=== PATIENT | female | born 1950 | race Caucasian/White ===

== ENCOUNTER 2019-10-19 17:04 | Inpatient (IN) | payer OTHER, MEDICARE ==
[2019-10-19] MEDS ORDERED: TYLENOL 325 MG PO PRN (17:16)
[2019-10-19] MEDS ORDERED: Colace 100 MG PO PRN (17:16)
[2019-10-19] MEDS: Tamiflu 75MG Capsule PO SCH (18:08)
[2019-10-19] MEDS: Sodium Chloride 0.9% 1000 ML 1,000 ML IV SCH (18:08)
[2019-10-19 18:53] LABS: Absolute Neutrophil Ct (ANC) 2.59 (1.4-6.9); BASOPHIL % 0.6 % (0.0-0.4); Basophil (Absolute #) 0.03 (0-0.4); Eosinophil % 4.3 % (0.00-5.0); Eosinophil (Absolute #) 0.23 (0-0.5); Hematocrit 38.3 % (35-47); Hemoglobin 10.5 gm/dl (12.0-16.0); Lymphocyte (Absolute #) 1.63 (1.0-4.6); Lymphocytes % 30.4 % (24.0-44.0); Mean Corpuscular Hemoglobin 24.1 pg (26-32); Mean Corpuscular Hgb Concent. 27.4 g/dl (32-36); Mean Platelet Volume 9.8 fl (7.5-11.0); Monocyte (Absolute #) 0.89 (0.0-1.3); Monocytes % 16.6 % (0.0-12.0); Neutrophil % 48.1 % (36.0-66.0); Platelet Count 200 K/mm3 (150-450); Red Blood Count 4.35 M/mm3 (4.1-5.4); Red Cell Distribution Width 19.8 % (11.5-14.0); White Blood Count 5.4 K/mm3 (4.0-10.5)
[2019-10-19 19:11] LABS: ALBUMIN 3.6 g/dL (3.5-5.0); ALKALINE PHOSPHATASE 100 U/L (38-126); ANION GAP 6.2 MEQ/L (5-15); BLOOD UREA NITROGEN 10 mg/dL (7-17); CHLORIDE 104 mmol/L (98-107); Calcium 8.7 mg/dL (8.4-10.2); Carbon Dioxide 36 mmol/L (22-30); Creatinine 1 0.58 mg/dL (0.52-1.04); Glucose 74 mg/dL (74-106); Potassium 3.7 mmol/L (3.5-5.1); SGOT/AST 36 U/L (14-36); SGPT/ALT 15 U/L (0-35); SODIUM 143 mmol/L (137-145)
[2019-10-19] MEDS ORDERED: ROCEPHIN 1 Gm-D5w 50 ml Bag** 1 G/50 ML IVPB IV SCH (20:00)
[2019-10-19] MEDS ORDERED: Zithromax 500 MG/ 250 ML NaCl Premix 500 MG/250 ML IVPB IV SCH (21:00)
[2019-10-19] MEDS ORDERED: Protonix 40MG Tablet PO SCH (22:00)
[2019-10-19] MEDS: Coreg 6.25 MG PO SCH (22:00)
[2019-10-19] MEDS: ZOCOR 20MG PO SCH (22:00)
[2019-10-20 00:17] LABS: A-aADO2 27; ABG POTASSIUM 3.9 (3.5-5.1); ARTERIAL BLOOD GAS BASE EXCESS 5.8 (-2.0-2.0); ARTERIAL BLOOD GAS pH 7.33 (7.35-7.45); CARBOXYHEMOGLOBIN 2.5 % THgb (0.0-6.9); HCO3- 33.2 (22-28); HGB O2 SAT 82.5 g/dF (94-100); Methhemoglobin 0.7 % (1.4-1.5); paO2 pAO1 0.62
[2019-10-20 00:26] LABS: ARTERIAL BLOOD GAS PCO2 63 mmHg (35-45)
[2019-10-20 00:28] LABS: Slide Review 1 YES
[2019-10-20 00:32] LABS: ABG HEMOGLOBIN 10.5; ARTERIAL BLOOD GAS FIO2 21 %; ARTERIAL BLOOD GAS PO2 44 mmHg (75-100)
[2019-10-20 00:33] LABS: ABG SITE LEFT RADIAL; ALLEN TEST OK? YES
[2019-10-20] MEDS ORDERED: DUONEB 0.5-3 MG/3 ml Neb IH ONE ×2 (03:18→09:27)
[2019-10-20] MEDS ORDERED: DUONEB 0.5-3 MG/3 ml Neb IH PRN (03:34)
[2019-10-20] MEDS ORDERED: solu-MEDROL 125 MG IV ONE (03:35)
--- NOTE | 2019-10-20 08:41 | XRAY ---
Indication: Cough and short of breath. Positive influenza. Comparison: None PA/lateral chest hyperinflated with chronic lung markings and patchy right base infiltrate versus atelectasis. Borderline cardiomegaly with small hiatal hernia. Bony thorax intact with mild osteopenia and degenerative changes.
[2019-10-20] MEDS ORDERED: PROVENTIL 2.5 MG/3 ML NEB IH PRN (08:45)
[2019-10-20] MEDS ORDERED: solu-MEDROL 40 MG IV SCH (08:45)
[2019-10-20] MEDS ORDERED: LASIX 20 MG PO PRN (09:15)
[2019-10-20] MEDS: DUONEB 0.5-3 MG/3 ml Neb IH SCH ×3 (09:33→19:22)
[2019-10-20] MEDS: PLAVIX 75 MG Tablet PO SCH (09:58)
[2019-10-20] MEDS: Tamiflu 75MG Capsule PO SCH ×2 (09:58→21:21)
[2019-10-20] MEDS: ECOTRIN 81 MG PO SCH (09:58)
[2019-10-20] MEDS: Coreg 6.25 MG PO SCH ×2 (09:58→21:20)
[2019-10-20] MEDS: SYNTHROID 88 MCG PO SCH (09:58)
[2019-10-20] MEDS: Protonix 40MG Tablet PO SCH (09:58)
[2019-10-20] MEDS: Glucotrol Xl 2.5 MG PO SCH (09:58)
[2019-10-20] MEDS ORDERED: GLIPIZIDE 5 MG PO SCH (10:00)
[2019-10-20] MEDS: Glucophage 500 MG PO SCH ×2 (10:03→17:33)
[2019-10-20] MEDS: solu-MEDROL 125 MG IV SCH ×3 (10:03→23:45)
--- NOTE | 2019-10-20 11:41 | HP ---
HISTORY OF PRESENT ILLNESS: This is a 69 year-old patient of mine who presented to [facility] yesterday. She reports to me she was having increased trouble breathing and fever starting on Friday and felt bad enough that she was not able to go to work on Friday. She reports that over the past three weeks she had some increased shortness of breath. She denies any history of chronic obstructive pulmonary disease or asthma. She has been exposed to influenza A where she works at [employer] and tested positive for influenza A in the [facility]. I made her a direct admission for further evaluation and treatment as [facility] found that her oxygen saturation was 90% on room air and she also has multiple other chronic health problems such as diabetes, hypertension, hyperlipidemia, hypothyroidism, as well as LYONS (nonalcoholic steatohepatitis) and history of variceal bleeding. The patient reports that overnight her breathing felt tight but feels better this morning. She does not wear oxygen at home. REVIEW OF SYSTEMS: No chest pain. No abdominal pain. No constipation. No diarrhea. No fever now. Shortness of breath. Mild swelling of her lower extremities. MEDICATIONS: I reviewed her home medication reconciliation form. ALLERGIES: CODEINE. PAST MEDICAL HISTORY: Diabetes mellitus type 2. Hyperlipidemia. Hypertension. Hypothyroidism. Nonalcoholic steatohepatitis with cirrhosis. History of variceal bleeding requiring banding 09/26/2019, 05/28/2019, 03/29/2019. CVA May 2019. History of atrial fibrillation with Watchman device placed May 2019. Her bank reconciliator is Dr. Andres Ewing. PAST SURGICAL HISTORY: Appendectomy. Variceal banding as described above. Thyroid surgery for goiter. Tonsillectomy. Upper endoscopy as described above. Watchman placed in May 2019. SOCIAL HISTORY: Her daughter lives with her, former smoker. FAMILY HISTORY: Her father had heart disease. Her mother had ovarian cancer and CVA. PHYSICAL EXAMINATION: VITAL SIGNS: Temperature current 97.6F, temperature max 98.1F, heart rate 78, respiratory rate 18, blood pressure 133/70, weight 154.2 kg. Oxygen saturation 91% on 3 liters nasal cannula. GENERAL: The patient is sitting up in her chair in no acute distress, alert and cooperative. CVS: She has a regular rate and rhythm. No murmurs, gallops or rubs are appreciated. CHEST: She has decreased breath sounds at the right base with prolonged breath sounds that are distant throughout, a few short expiratory wheezes throughout. ABDOMEN: Soft, nontender, nondistended with normal bowel sounds. EXTREMITIES: No clubbing or cyanosis. Trace edema to her knees bilaterally. SKIN: Warm, dry and intact. LABORATORY DATA AND TESTS: Hemoglobin 10.5. She had a blood gas done at 0024 on 10/20/2019 with a pH of 7.3, pCO2 63, pO2 44 this was done on room air. CMP was within normal limits except for carbon dioxide of 36, hemoglobin A1C 6.2. She had a chest x-ray done that was read as hyperinflated with chronic lung markings and patchy right base infiltrate versus atelectasis, borderline cardiomegaly with small hiatal hernia, mild osteopenia of the bony thorax and degenerative changes. Please see the radiologist report for the full dictation. ASSESSMENT AND PLAN: 1) INFLUENZA A: She has been started on Tamiflu. She reported to me that she had gotten her flu immunization one week prior to this admission. 2) RIGHT LOWER LOBE PNEUMONIA: I started her on ceftriaxone and azithromycin. 3) HYPERCAPNIC RESPIRATORY FAILURE: Will continue with supportive treatment and Dr. Vitor Ferraro, [facility], has been consulted. 4) HYPOXIA: Will continue with oxygen. Again, Dr. Vitor Ferraro has been consulted. 5) REACTIVE AIRWAY DISEASE: She may have some underlying chronic obstructive pulmonary disease. I started her on Solu-Medrol 80 mg IV every six hours as well as DuoNeb every six hours and Albuterol as needed. RT was consulted at the time of admission and is now following the patient. 6) DIABETES: Will continue with her home diabetes medication and low dose sliding scale if needed. Her hemoglobin A1C was less than 2. 7) HYPERTENSION: Will continue with her current home antihypertensive. 8) ANEMIA: Probably related to her chronic health problems currently stable. No signs of variceal bleeding.
[2019-10-20] MEDS: NovoLOG Insulin SQ PRN ×3 (12:48→22:01)
[2019-10-20] MEDS: Sodium Chloride 0.9% 1000 ML 1,000 ML IV SCH (14:10)
--- NOTE | 2019-10-20 14:35 | CONS ---
CONSULT DATE: 10/20/2019 HISTORY: Miss Ramirez is a 69 year-old pleasant woman who has been admitted with complaints of cough, shortness of breath, wheezing. The patient has tested positive for influenza and she has been treated on Tamiflu and antibiotics for bacterial infection. She does report improvement in shortness of breath. She is currently sitting in chair on nasal cannula. She does report improvement in cough which has had yellow productive expectoration. The patient has received influenza vaccine this year. She denies any other common medical problems at this time. PAST MEDICAL HISTORY: Positive for history of stroke last year. History of hypertension, diabetes mellitus and gastroesophageal reflux. She also has hyperlipidemia and hypothyroidism. PAST SURGICAL HISTORY: No recent surgery. PERSONAL AND SOCIAL HISTORY: She is a former smoker but quit several years ago. MEDICATIONS: Home and current medications are reviewed. ALLERGIES: CODEINE. PHYSICAL EXAMINATION: This is a middle aged woman who appears comfortable, able to talk without difficulty. Vital signs noted. HEENT: Normocephalic. Oral exam shows small oropharynx. NECK: Short. CVS: First and second heart sounds are normal, regular, rhythmic. RESPIRATORY: Shows diminished breath sounds, occasional rhonchi are heard. ABDOMEN: Obese. EXTREMITIES: Lower extremities show SCD's in place. LABORATORY DATA AND TESTS: White count 5.4, hemoglobin 10.5, hematocrit 38, PLT 200,000. The pH 7.33, pCO2 63, pO2 44. Sodium 143, potassium 3.7, chloride 104, bicarb 36, BUN 10, creatinine 0.5. A1C 6.2. Chest x-ray showed patchy right base infiltrate versus atelectasis. ASSESSMENT: This is a 69 year old woman admitted with: 1) Influenza A being treated with Tamiflu. 2) Right lower lobe infiltrate on antibiotics. Recommend follow up chest x-ray for resolution. 3) Shortness of breath: Body habitus versus likely obstructive airways disease? 4) Hypercapnia at baseline with possible obesity hypoventilation. 5) History of hypertension. 6) Diabetes mellitus. 7) Previous history of CVA. RECOMMENDATIONS: 1) I agree with the present treatment. Complete Tamiflu. 2) Continue antibiotics, obtain follow up chest x-ray. 3) Pulmonary function test at a later point. 4) The patient will benefit from polysomnography to rule out obstructive sleep apnea as well. 5) I will follow up in office upon discharge. Thank you, Dr. Jaime, for allowing me to participate in the care of Miss Ramirez.
[2019-10-20] MEDS: ROCEPHIN 1 Gm-D5w 50 ml Bag** 1 G/50 ML IVPB IV SCH (21:20)
[2019-10-20] MEDS: ZOCOR 20MG PO SCH (21:21)
[2019-10-20] MEDS: Zithromax 500 MG/ 250 ML NaCl Premix 500 MG/250 ML IVPB IV SCH (21:21)
[2019-10-21 05:17] LABS: BASOPHIL % 0.3 % (0.0-0.4); Basophil (Absolute #) 0.02 (0-0.4); Eosinophil (Absolute #) 0 (0-0.5); Hematocrit 38.1 % (35-47); Hemoglobin 10.3 gm/dl (12.0-16.0); Lymphocyte (Absolute #) 0.61 (1.0-4.6); Lymphocytes % 7.8 % (24.0-44.0); Mean Cell Volume 91.1 fl (78-100); Mean Corpuscular Hemoglobin 24.6 pg (26-32); Mean Platelet Volume 10.5 fl (7.5-11.0); Monocytes % 3.8 % (0.0-12.0); Neutrophil % 88.1 % (36.0-66.0); Platelet Count 190 K/mm3 (150-450); Red Blood Count 4.18 M/mm3 (4.1-5.4); Red Cell Distribution Width 19.1 % (11.5-14.0); White Blood Count 7.8 K/mm3 (4.0-10.5)
[2019-10-21 05:21] LABS: ANION GAP 9.3 MEQ/L (5-15); BLOOD UREA NITROGEN 11 mg/dL (7-17); CHLORIDE 105 mmol/L (98-107); Calcium 8.7 mg/dL (8.4-10.2); Carbon Dioxide 32 mmol/L (22-30); Creatinine 1 0.46 mg/dL (0.52-1.04); Glucose 229 mg/dL (74-106); SODIUM 142 mmol/L (137-145)
[2019-10-21 05:24] LABS: Potassium 4.7 mmol/L (3.5-5.1)
[2019-10-21] MEDS: solu-MEDROL 125 MG IV SCH ×4 (06:21→23:11)
[2019-10-21] MEDS: DUONEB 0.5-3 MG/3 ml Neb IH SCH ×4 (06:46→20:06)
[2019-10-21] MEDS: Glucophage 500 MG PO SCH ×2 (08:16→18:02)
[2019-10-21] MEDS: NovoLOG Insulin SQ PRN ×3 (08:17→21:38)
[2019-10-21] MEDS: Glucotrol Xl 2.5 MG PO SCH (08:17)
[2019-10-21 08:23] LABS: Slide Review 1 YES
--- NOTE | 2019-10-21 08:34 | PCM.NOTE ---
Date and Time: 10/21/19828 Subjective Assessment: Patient reports continued cough that is now nonproductive. She does not wear oxygen at home but continues to require oxygen here. Dr. Hitesh Ferraro saw her yesterday. - Review of Systems Constitutional: Fatigue Eyes: No Symptoms Ears, Nose, & Throat: No Symptoms Respiratory: Cough, Short Of Breath Cardiac: No Symptoms Abdominal/Gastrointestinal: No Constipation Genitourinary Symptoms: No Symptoms Musculoskeletal: No Symptoms Objective Exam General Appearance: no apparent distress, obese Neurologic Exam: alert, cooperative, normal mood/affect Skin Exam: normal color, warm, dry, No rash Respiratory Exam: other (distant breath sounds throughout, few scattered wheezes ), No crackles/rales Cardiovascular Exam: regular rate/rhythm, normal heart sounds, No murmur, No friction rub, No gallop Gastrointestinal/Abdomen Exam: soft, normal bowel sounds, No tenderness, No distention, No mass Extremity Exam: other (trace edema, no c/c) OBJECTIVE DATA Vital Signs: Vital Signs - 24 hr Temp Pulse Resp BP Pulse Ox 10/21/19 07:52 97.6 F 73 20 135/71 95 10/21/19 07:29 91 L 10/21/19 06:49 73 20 95 10/21/19 04:10 98.3 F 92 H 24 148/67 94 L 10/21/19 03:00 94 L 10/21/19 00:21 98.6 F 80 20 141/71 97 10/20/19 23:00 91 L 10/20/19 20:00 98.1 F 72 24 134/70 91 L 10/20/19 19:28 65 18 90 L 10/20/19 16:00 98.0 F 80 18 139/63 91 L 10/20/19 14:14 76 22 90 L 10/20/19 12:00 97.6 F 86 20 139/65 91 L 10/20/19 11:00 91 L 10/20/19 09:41 88 20 92 L Oxygen-Last 24 hours O2 Percentage 4 Liters = 36% O2 Percentage 4 Liters = 36% O2 Percentage 4 Liters = 36% O2 Percentage 3 Liters = 32% O2 Percentage 3 Liters = 32% O2 Percentage 3 Liters = 32% Oxygen Flowrate (L/min)-RT 3 Pain Assessment - Last Documented Pain Intensity 0 Pain Scale Used 0-10 Pain Scale Intake and Output: Intake & Output 10/19/19 10/20/19 10/21/19 10/22/19 06:59 06:59 06:59 06:59 Intake Total 951 2068 Balance 956 2068 Weight 154.2 kg Lab Results: Accuchecks Accucheck Value: 221 Accucheck Value: 278 Accucheck Value: 262 Lab Results-Last 24 Hours 10/21/19 10/21/19 Range/Units 05:10 05:10 WBC 7.8 (4.0-10.5) K/mm3 RBC 4.18 (4.1-5.4) M/mm3 Hgb 10.3 L (12.0-16.0) gm/dl Hct 38.1 (35-47) % MCV 91.1 (78-100) fl MCH 24.6 L (26-32) pg MCHC 27.0 L (32-36) g/dl RDW 19.1 H (11.5-14.0) % Plt Count 190 (150-450) K/mm3 MPV 10.5 (7.5-11.0) fl Gran % 88.1 H (36.0-66.0) % Eos # (Auto) 0 (0-0.5) Absolute Lymphs (auto) 0.61 L (1.0-4.6) Absolute Monos (auto) 0.30 (0.0-1.3) Lymphocytes % 7.8 L (24.0-44.0) % Monocytes % 3.8 (0.0-12.0) % Eosinophils % 0.0 (0.00-5.0) % Basophils % 0.3 (0.0-0.4) % Absolute Granulocytes 6.90 (1.4-6.9) Basophils # 0.02 (0-0.4) Sodium 142 (137-145) mmol/L Potassium 4.7 D (3.5-5.1) mmol/L Chloride 105 (98-107) mmol/L Carbon Dioxide 32 H (22-30) mmol/L Anion Gap 9.3 (5-15) MEQ/L BUN 11 (7-17) mg/dL Creatinine 0.46 L (0.52-1.04) mg/dL Estimated GFR > 60.0 ML/MIN Glucose 229 H (74-106) mg/dL Calcium 8.7 (8.4-10.2) mg/dL Slides for Path Review YES Radiology Exams: Radiology Procedures Category Date Time Status CHEST 2 VIEWS (PA AND LAT) Routine Exams 10/19/19 17:40 Completed Assessment/Plan (1) Influenza A Current Visit: Yes Status: Acute Onset Date: ~10/19/19 Assessment & Plan: Requiring oxygen. Continue to try to wean this. Continue Tamiflu. Code(s): J10.1 - FLU DUE TO OTH IDENT INFLUENZA VIRUS W OTH RESP MANIFEST (2) Pneumonia Current Visit: Yes Status: Acute Onset Date: ~10/19/19 Qualifiers: Laterality: right Lung location: lower lobe of lung Assessment & Plan: Continue ceftriaxone and azithromycin. Dr. Hitesh Ferraro saw her. Continue breathing treatments. Code(s): J18.9 - PNEUMONIA, UNSPECIFIED ORGANISM (3) Hypoxia Current Visit: Yes Status: Acute Onset Date: ~10/19/19 Code(s): R09.02 - HYPOXEMIA (4) Reactive airway disease Current Visit: Yes Status: Acute Assessment & Plan: Continue solumedrol and breathing treatments. Code(s): J45.909 - UNSPECIFIED ASTHMA, UNCOMPLICATED (5) Diabetes type 2, controlled Current Visit: Yes Status: Acute Qualifiers: Diabetes mellitus complication status: with diabetic arthropathy Assessment & Plan: Continue home medications and sliding scale of insulin. Code(s): E11.9 - TYPE 2 DIABETES MELLITUS WITHOUT COMPLICATIONS (6) Hypertension Current Visit: Yes Status: Acute Assessment & Plan: Well controlled. Code(s): I10 - ESSENTIAL (PRIMARY) HYPERTENSION (7) Anemia Current Visit: Yes Status: Acute Assessment & Plan: Will check iron and Vit B 12 levels. Patient has cirrhosis so may be anemia of chronic disease. Code(s): D64.9 - ANEMIA, UNSPECIFIED (8) Cirrhosis Current Visit: Yes Status: Acute (9) Steatohepatitis, nonalcoholic Current Visit: Yes Status: Acute Assessment & Plan: Follows with GI as outpatient. Code(s): K75.81 - NONALCOHOLIC STEATOHEPATITIS (LYONS)
[2019-10-21] MEDS: SYNTHROID 88 MCG PO SCH (09:43)
[2019-10-21] MEDS: PLAVIX 75 MG Tablet PO SCH (09:43)
[2019-10-21] MEDS: Protonix 40MG Tablet PO SCH (09:43)
[2019-10-21] MEDS: Coreg 6.25 MG PO SCH ×2 (09:43→21:38)
[2019-10-21] MEDS: ECOTRIN 81 MG PO SCH (09:43)
[2019-10-21] MEDS: Tamiflu 75MG Capsule PO SCH ×2 (09:43→21:37)
[2019-10-21 10:40] LABS: Iron 39 ug/dL (37-170); Iron Saturation 9 % (20-39); TIBC 430 ug/dL (265-462)
[2019-10-21] MEDS: ZOCOR 20MG PO SCH (21:37)
[2019-10-21] MEDS: ROCEPHIN 1 Gm-D5w 50 ml Bag** 1 G/50 ML IVPB IV SCH (21:37)
[2019-10-21] MEDS: Zithromax 500 MG/ 250 ML NaCl Premix 500 MG/250 ML IVPB IV SCH (21:38)
[2019-10-22] MEDS: DUONEB 0.5-3 MG/3 ml Neb IH SCH ×4 (00:12→19:38)
[2019-10-22] MEDS: Sodium Chloride 0.9% 1000 ML 1,000 ML IV SCH (03:56)
[2019-10-22] MEDS: solu-MEDROL 125 MG IV SCH ×3 (06:34→22:13)
[2019-10-22] MEDS: Glucotrol Xl 2.5 MG PO SCH (08:02)
[2019-10-22] MEDS: Glucophage 500 MG PO SCH ×2 (08:02→16:50)
--- NOTE | 2019-10-22 08:29 | PCM.NOTE ---
Date and Time: 10/22/19824 Subjective Assessment: She reports she is starting to feel better with less shortness of breath and less fatigue. RT is going to check her oxygen saturation off oxygen. - Review of Systems Constitutional: Fatigue Eyes: No Symptoms Ears, Nose, & Throat: No Symptoms Respiratory: Short Of Breath, Wheezing Cardiac: No Symptoms Abdominal/Gastrointestinal: No Symptoms Genitourinary Symptoms: No Symptoms Musculoskeletal: No Symptoms Objective Exam General Appearance: no apparent distress, obese Neurologic Exam: alert, cooperative, normal mood/affect Skin Exam: normal color, warm, dry, No rash Respiratory Exam: other (scattered expiratory wheezes throughout, no crackles, no rhonchi, equal breath sounds) Cardiovascular Exam: regular rate/rhythm, normal heart sounds, No murmur, No friction rub, No gallop Gastrointestinal/Abdomen Exam: soft, normal bowel sounds, No tenderness, No distention, No mass Extremity Exam: other (no c/c/e) OBJECTIVE DATA Vital Signs: Vital Signs - 24 hr Temp Pulse Resp BP Pulse Ox 10/22/19 07:43 85 18 95 10/22/19 05:00 93 L 10/22/19 04:25 97.8 F 78 22 165/78 97 10/22/19 01:00 93 L 10/22/19 00:12 78 20 93 L 10/22/19 00:00 98.4 F 86 20 137/69 95 10/21/19 21:00 94 L 10/21/19 20:00 97.9 F 80 20 159/75 94 L 10/21/19 17:19 92 H 20 93 L 10/21/19 16:00 97.7 F 91 H 18 155/78 94 L 10/21/19 12:13 89 20 92 L 10/21/19 12:00 97.6 F 75 20 168/76 94 L Oxygen-Last 24 hours O2 Percentage 3 Liters = 32% O2 Percentage 3 Liters = 32% O2 Percentage 3 Liters = 32% O2 Percentage 3 Liters = 32% O2 Percentage 4 Liters = 36% Oxygen Flowrate (L/min)-RT 3 Oxygen Flowrate (L/min)-RT 3 Oxygen Flowrate (L/min)-RT 3 Pain Assessment - Last Documented Pain Intensity 0 Pain Scale Used 0-10 Pain Scale Intake and Output: Intake & Output 0110/21/19 10/22/19 10/23/19 06:59 06:59 06:59 06:59 Intake Total 955 2068 229 Balance 955 2068 229 Weight 154.2 kg 154.2 kg Lab Results: Accuchecks Accucheck Value: 276 Accucheck Value: 264 Accucheck Value: 207 Lab Results-Last 24 Hours 10/21/19 10/21/19 Range/Units 05:00 05:00 Iron 39 (37-170) ug/dL TIBC 430 (265-462) ug/dL Iron Saturation 9 L (20-39) % Vitamin B12 492 (239-931) pg/mL Assessment/Plan (1) Influenza A Current Visit: Yes Status: Acute Onset Date: ~10/19/19 Assessment & Plan: Continue Tamiflu and supportive care. Code(s): J10.1 - FLU DUE TO OTH IDENT INFLUENZA VIRUS W OTH RESP MANIFEST (2) Pneumonia Current Visit: Yes Status: Acute Onset Date: ~10/19/19 Qualifiers: Laterality: right Lung location: lower lobe of lung Code(s): J18.9 - PNEUMONIA, UNSPECIFIED ORGANISM (3) Hypoxia Current Visit: Yes Status: Acute Onset Date: ~10/19/19 Assessment & Plan: Continue ceftriaxone and azithromycin. Day 4 of antibiotics. Code(s): R09.02 - HYPOXEMIA (4) Reactive airway disease Current Visit: Yes Status: Acute Code(s): J45.909 - UNSPECIFIED ASTHMA, UNCOMPLICATED (5) Diabetes type 2, controlled Current Visit: Yes Status: Acute Qualifiers: Diabetes mellitus complication status: with diabetic arthropathy Assessment & Plan: Add lantus since blood glucoses have been higher on steroids. Continue with home medications and low dose sliding scale of novolog. Code(s): E11.9 - TYPE 2 DIABETES MELLITUS WITHOUT COMPLICATIONS (6) Hypertension Current Visit: Yes Status: Acute Assessment & Plan: Increase carvedilol. Code(s): I10 - ESSENTIAL (PRIMARY) HYPERTENSION (7) Anemia Current Visit: Yes Status: Acute Qualifiers: Anemia type: other cause Assessment & Plan: Most likely due to chronic disease from cirrhosis; iron and Vit B 12 levels normal. Code(s): D64.9 - ANEMIA, UNSPECIFIED (8) Cirrhosis Current Visit: Yes Status: Acute (9) Steatohepatitis, nonalcoholic Current Visit: Yes Status: Acute Code(s): K75.81 - NONALCOHOLIC STEATOHEPATITIS (LYONS)
[2019-10-22] MEDS ORDERED: Lantus Insulin SQ ONE (09:00)
[2019-10-22] MEDS: ECOTRIN 81 MG PO SCH (10:30)
[2019-10-22] MEDS: PLAVIX 75 MG Tablet PO SCH (10:30)
[2019-10-22] MEDS: Tamiflu 75MG Capsule PO SCH ×2 (10:30→22:12)
[2019-10-22] MEDS: Protonix 40MG Tablet PO SCH (10:30)
[2019-10-22] MEDS: COREG 12.5 MG PO SCH ×2 (10:30→22:13)
[2019-10-22] MEDS: SYNTHROID 88 MCG PO SCH (10:30)
--- NOTE | 2019-10-22 13:45 | XRAY ---
Indication: Pneumonia. Influenza. Comparison: October 19, 2019. PA/lateral chest remains hyperinflated with chronic lung markings. Stable right base infiltrate/atelectasis with new tiny bilateral effusions. Remaining heart and lungs unremarkable.
[2019-10-22] MEDS: NovoLOG Insulin SQ PRN ×2 (13:47→22:59)
[2019-10-22] MEDS: ZOCOR 20MG PO SCH (22:12)
[2019-10-22] MEDS: ROCEPHIN 1 Gm-D5w 50 ml Bag** 1 G/50 ML IVPB IV SCH (22:12)
[2019-10-22] MEDS: Zithromax 500 MG/ 250 ML NaCl Premix 500 MG/250 ML IVPB IV SCH (22:59)
[2019-10-23] MEDS: DUONEB 0.5-3 MG/3 ml Neb IH SCH ×4 (00:46→18:23)
[2019-10-23] MEDS: solu-MEDROL 125 MG IV SCH (05:21)
[2019-10-23] MEDS: Sodium Chloride 0.9% 1000 ML 1,000 ML IV SCH (05:22)
[2019-10-23] MEDS: Protonix 40MG Tablet PO SCH (07:43)
[2019-10-23] MEDS: Glucotrol Xl 2.5 MG PO SCH (07:43)
[2019-10-23] MEDS: Glucophage 500 MG PO SCH ×2 (07:43→18:12)
[2019-10-23] MEDS: ECOTRIN 81 MG PO SCH (07:43)
[2019-10-23] MEDS: Tamiflu 75MG Capsule PO SCH ×2 (07:43→21:33)
[2019-10-23] MEDS: COREG 12.5 MG PO SCH ×2 (07:43→21:33)
[2019-10-23] MEDS: NovoLOG Insulin SQ PRN ×3 (07:44→18:12)
[2019-10-23] MEDS: SYNTHROID 88 MCG PO SCH (07:44)
[2019-10-23] MEDS: PLAVIX 75 MG Tablet PO SCH (07:45)
[2019-10-23] MEDS: Lasix 20 MG/2 ML IV SCH (11:33)
--- NOTE | 2019-10-23 14:30 | PCM.NOTE ---
Date and Time: 10/23/19 1425 Subjective Assessment: She reports she feels a little better but still requiring oxygen. She does not think she has taken the oral lasix since being here. She usually works [employer] at [place] so being on home oxygen would hinder this. She reports her appetite has been good. No pain or other concerns. She is concerned she may need to give herself insulin at home. - Review of Systems Constitutional: Weakness Respiratory: Short Of Breath, Wheezing Cardiac: No Symptoms Abdominal/Gastrointestinal: No Symptoms Genitourinary Symptoms: No Symptoms Musculoskeletal: No Symptoms Skin: No Symptoms Objective Exam General Appearance: no apparent distress, obese Neurologic Exam: alert, cooperative, normal mood/affect Skin Exam: normal color, warm, dry, No rash Respiratory Exam: other (very distant breath sounds, no wheezes, no rhonchi, no crackles) Cardiovascular Exam: regular rate/rhythm, normal heart sounds, No murmur, No friction rub, No gallop Gastrointestinal/Abdomen Exam: soft, normal bowel sounds, No tenderness, No distention, No mass Extremity Exam: other (+ 1 edema to mid shins bilat) OBJECTIVE DATA Vital Signs: Vital Signs - 24 hr Temp Pulse Resp BP Pulse Ox 10/23/19 13:22 85 18 94 L 10/23/19 12:53 98 F 86 22 142/81 96 10/23/19 08:00 97.8 F 88 20 132/80 95 10/23/19 07:54 88 20 95 10/23/19 03:52 97.5 F 89 20 125/60 93 L 10/23/19 03:00 93 L 10/23/19 00:58 82 20 94 L 10/23/19 00:00 97.9 F 76 19 125/70 98 10/22/19 23:00 98 10/22/19 20:00 97.8 F 64 16 108/68 98 10/22/19 19:38 83 20 93 L 10/22/19 19:00 98 10/22/19 16:00 76 146/77 98 10/22/19 15:00 98 Oxygen-Last 24 hours O2 Percentage 4 Liters = 36% O2 Percentage 4 Liters = 36% O2 Percentage 4 Liters = 36% Oxygen Flowrate (L/min)-RT 3 Oxygen Flowrate (L/min)-RT 3 Oxygen Flowrate (L/min)-RT 3 Oxygen Flowrate (L/min)-RT 3 Oxygen Flowrate (L/min)-RT 3 Oxygen Flowrate (L/min)-RT 4 Pain Assessment - Last Documented Pain Intensity 0 Pain Scale Used 0-10 Pain Scale Intake and Output: Intake & Output 10/21/19 10/22/19 10/23/19 10/24/19 06:59 06:59 06:59 06:59 Intake Total 2068 2293 1870 Balance 2068 2292 187 Weight 154.2 kg Lab Results: Accuchecks Date 10/23/19 Date 10/23/19 Time 11:30 Time 07:30 Accucheck Value: 272 Accucheck Value: 220 Accucheck Value: 248 Accucheck Value: 234 Radiology Exams: Radiology Procedures Category Date Time Status CHEST 2 VIEWS (PA AND LAT) Routine Exams 10/22/19 13:34 Completed Multi-Disciplinary Progress Notes: Multi-Disciplinary Progress Notes 10/23/19 10:21 Respiratory Note by Bina Billingsley 1000 SPO2 3LPM AT REST 97%. PLACED ON ROOM AIR AT REST SPO2 DEC TO 84%. PLACED BACK ON N/C 3LPM SPO2 BACK TO 97%. Initialized on 10/23/19 10:21 - END OF NOTE Assessment/Plan (1) Influenza A Current Visit: Yes Status: Acute Onset Date: ~10/19/19 Assessment & Plan: Continue Tamiflu. Code(s): J10.1 - FLU DUE TO OTH IDENT INFLUENZA VIRUS W OTH RESP MANIFEST (2) Pneumonia Current Visit: Yes Status: Acute Onset Date: ~10/19/19 Qualifiers: Laterality: right Lung location: lower lobe of lung Code(s): J18.9 - PNEUMONIA, UNSPECIFIED ORGANISM (3) Hypoxia Current Visit: Yes Status: Acute Onset Date: ~10/19/19 Assessment & Plan: Continue azithromycin for total 5 days and continue ceftriaxone. Code(s): R09.02 - HYPOXEMIA (4) Reactive airway disease Current Visit: Yes Status: Acute Assessment & Plan: Continue albuterol; will decrease IV steroids. Code(s): J45.909 - UNSPECIFIED ASTHMA, UNCOMPLICATED (5) Diabetes type 2, controlled Current Visit: Yes Status: Acute Qualifiers: Diabetes mellitus complication status: with diabetic arthropathy Code(s): E11.9 - TYPE 2 DIABETES MELLITUS WITHOUT COMPLICATIONS (6) Hypertension Current Visit: Yes Status: Acute Assessment & Plan: Continue home medication. Better controlled. Code(s): I10 - ESSENTIAL (PRIMARY) HYPERTENSION (7) Anemia Current Visit: Yes Status: Acute Qualifiers: Anemia type: other cause Assessment & Plan: Stable. Code(s): D64.9 - ANEMIA, UNSPECIFIED (8) Cirrhosis Current Visit: Yes Status: Acute Assessment & Plan: Follows with GI As outpatient (9) Steatohepatitis, nonalcoholic Current Visit: Yes Status: Acute Assessment & Plan: Follows with GI As outpatient Code(s): K75.81 - NONALCOHOLIC STEATOHEPATITIS (LYONS)
[2019-10-23] MEDS ORDERED: solu-MEDROL 125 MG IV SCH (18:00)
[2019-10-23] MEDS: solu-MEDROL 40 MG IV SCH (18:12)
[2019-10-23] MEDS: ROCEPHIN 1 Gm-D5w 50 ml Bag** 1 G/50 ML IVPB IV SCH (21:33)
[2019-10-23] MEDS: ZOCOR 20MG PO SCH (21:34)
[2019-10-23] MEDS ORDERED: Zithromax 250 MG TABLET PO SCH (22:00)
[2019-10-24] MEDS: DUONEB 0.5-3 MG/3 ml Neb IH SCH ×4 (00:24→19:14)
[2019-10-24] MEDS: solu-MEDROL 40 MG IV SCH ×2 (06:16→17:14)
[2019-10-24 08:27] LABS: Hematocrit 36.9 % (35-47); Hemoglobin 10.2 gm/dl (12.0-16.0); Mean Cell Volume 89.1 fl (78-100); Mean Corpuscular Hemoglobin 24.6 pg (26-32); Mean Corpuscular Hgb Concent. 27.6 g/dl (32-36); Mean Platelet Volume 9.8 fl (7.5-11.0); Platelet Count 197 K/mm3 (150-450); Red Blood Count 4.14 M/mm3 (4.1-5.4); Red Cell Distribution Width 18.7 % (11.5-14.0); White Blood Count 9.9 K/mm3 (4.0-10.5)
[2019-10-24] MEDS: Lasix 20 MG/2 ML IV SCH (08:31)
[2019-10-24] MEDS: PLAVIX 75 MG Tablet PO SCH (08:32)
[2019-10-24] MEDS: COREG 12.5 MG PO SCH ×2 (08:32→22:06)
[2019-10-24] MEDS: Tamiflu 75MG Capsule PO SCH (08:32)
[2019-10-24] MEDS: Protonix 40MG Tablet PO SCH (08:32)
[2019-10-24] MEDS: Glucophage 500 MG PO SCH ×2 (08:32→17:14)
[2019-10-24] MEDS: ECOTRIN 81 MG PO SCH (08:32)
[2019-10-24] MEDS: SYNTHROID 88 MCG PO SCH (08:33)
[2019-10-24] MEDS: NovoLOG Insulin SQ PRN ×3 (08:33→22:06)
[2019-10-24] MEDS: Glucotrol Xl 2.5 MG PO SCH (08:33)
[2019-10-24 09:11] LABS: Hypochromia 1+; Lymphocytes 11 % (24-44); Monocyte 3 % (0.0-12.0); Neutrophils 86 % (36.0-66.0); Platelet Estimate NORMAL (NORMAL); Polychromasia 1+; Total Cells Counted 100
[2019-10-24 09:22] LABS: ANION GAP 8.6 MEQ/L (5-15); BLOOD UREA NITROGEN 25 mg/dL (7-17); CHLORIDE 98 mmol/L (98-107); Carbon Dioxide 38 mmol/L (22-30); Creatinine 1 0.41 mg/dL (0.52-1.04); Glucose 249 mg/dL (74-106); Potassium 4.7 mmol/L (3.5-5.1); SODIUM 140 mmol/L (137-145)
--- NOTE | 2019-10-24 14:29 | PCM.NOTE ---
Date and Time: 10/24/191423 Subjective Assessment: Patient states she feels a little better today but still short of breath with just ambulating to the bathroom. She reports good urination with the IV lasix and less swelling. - Review of Systems Constitutional: Weakness Respiratory: Short Of Breath, Wheezing Cardiac: No Symptoms Abdominal/Gastrointestinal: No Symptoms Genitourinary Symptoms: No Symptoms Objective Exam General Appearance: no apparent distress, obese Neurologic Exam: alert, cooperative, normal mood/affect Skin Exam: normal color, warm, dry, No rash Respiratory Exam: other (distant breath sounds, no wheezes, no crackles) Cardiovascular Exam: regular rate/rhythm, normal heart sounds, No murmur, No friction rub, No gallop Gastrointestinal/Abdomen Exam: soft, normal bowel sounds, No tenderness, No distention, No mass Extremity Exam: other (trace edema in lower legs bilat) OBJECTIVE DATA Vital Signs: Vital Signs - 24 hr Temp Pulse Resp BP Pulse Ox 10/24/19 12:31 97.9 F 87 20 143/69 97 10/24/19 12:22 90 18 97 10/24/19 12:00 96 10/24/19 08:00 96 10/24/19 07:32 98 F 90 20 148/68 96 10/24/19 05:35 82 20 96 10/24/19 04:00 97.9 F 82 20 145/62 98 10/24/19 00:24 71 16 95 10/24/19 00:00 97.9 F 60 20 145/72 91 L 10/23/19 23:00 91 L 10/23/19 20:00 97.9 F 78 20 142/65 98 10/23/19 19:00 91 L 10/23/19 18:46 88 18 95 10/23/19 16:00 97.8 F 86 20 140/78 95 10/23/19 15:00 94 L Oxygen-Last 24 hours O2 Percentage 3 Liters = 32% O2 Percentage 4 Liters = 36% O2 Percentage 3 Liters = 32% O2 Percentage 2 Liters = 28% Oxygen Flowrate (L/min)-RT 3 Oxygen Flowrate (L/min)-RT 3 Oxygen Flowrate (L/min)-RT 3 Pain Assessment - Last Documented Pain Intensity 0 Pain Scale Used 0-10 Pain Scale Intake and Output: Intake & Output 10/22/19 10/23/19 10/24/19 10/25/19 06:59 06:59 06:59 06:59 Intake Total 2293 1870 1060 360 Output Total 1000 Balance 2293 1870 60 360 Weight 154.2 kg 162.8 kg Lab Results: Accuchecks Date 10/24/19 Date 10/24/19 Date 10/23/19 Date 10/23/19 Time 11:30 Time 07:30 Time 21:30 Time 16:30 Accucheck Value: 352 Accucheck Value: 224 Accucheck Value: 235 Accucheck Value: 227 Lab Results-Last 24 Hours 10/24/19 10/24/19 10/24/19 Range/Units 08:15 08:15 08:15 WBC 9.9 (4.0-10.5) K/mm3 RBC 4.14 (4.1-5.4) M/mm3 Hgb 10.2 L (12.0-16.0) gm/dl Hct 36.9 (35-47) % MCV 89.1 (78-100) fl MCH 24.6 L (26-32) pg MCHC 27.6 L (32-36) g/dl RDW 18.7 H (11.5-14.0) % Plt Count 197 (150-450) K/mm3 MPV 9.8 (7.5-11.0) fl Segmented Neutrophils 86 H (36.0-66.0) % Lymphocytes (Manual) 11 L (24-44) % Monocytes (Manual) 3 (0.0-12.0) % Hypochromia 1+ Platelet Estimate NORMAL (NORMAL) RBC Morphology ABNORMAL Polychromasia 1+ Sodium 140 (137-145) mmol/L Potassium 4.7 (3.5-5.1) mmol/L Chloride 98 (98-107) mmol/L Carbon Dioxide 38 H (22-30) mmol/L Anion Gap 8.6 (5-15) MEQ/L BUN 25 H (7-17) mg/dL Creatinine 0.41 L (0.52-1.04) mg/dL Estimated GFR > 60.0 ML/MIN Glucose 249 H (74-106) mg/dL Calcium 9.0 (8.4-10.2) mg/dL NT-Pro-B Natriuret Pep 748 (0-900) pg/mL Radiology Exams: Radiology Procedures Category Date Time Status CHEST 2 VIEWS (PA AND LAT) Routine Exams 10/22/19 13:34 Completed Assessment/Plan (1) Influenza A Current Visit: Yes Status: Acute Onset Date: ~10/19/19 Assessment & Plan: Continue tamiflu and supportive care. Code(s): J10.1 - FLU DUE TO OTH IDENT INFLUENZA VIRUS W OTH RESP MANIFEST (2) Pneumonia Current Visit: Yes Status: Acute Onset Date: ~10/19/19 Qualifiers: Laterality: right Lung location: lower lobe of lung Assessment & Plan: Continue ceftriaxone. Finished 5 days of azithromycin. Still needing oxygen. Chest x-ray unchanged. Code(s): J18.9 - PNEUMONIA, UNSPECIFIED ORGANISM (3) Hypoxia Current Visit: Yes Status: Acute Onset Date: ~10/19/19 Assessment & Plan: May require home o2 for pneumonia if unable to wean today. Code(s): R09.02 - HYPOXEMIA (4) Reactive airway disease Current Visit: Yes Status: Acute Assessment & Plan: Continue breathing treatments and IV steroids continue to be tapered. Code(s): J45.909 - UNSPECIFIED ASTHMA, UNCOMPLICATED (5) Diabetes type 2, controlled Current Visit: Yes Status: Acute Assessment & Plan: Continue current medication. Code(s): E11.9 - TYPE 2 DIABETES MELLITUS WITHOUT COMPLICATIONS (6) Hypertension Current Visit: Yes Status: Acute Assessment & Plan: Continue current medication. Code(s): I10 - ESSENTIAL (PRIMARY) HYPERTENSION (7) Anemia Current Visit: Yes Status: Acute Qualifiers: Anemia type: other cause Code(s): D64.9 - ANEMIA, UNSPECIFIED (8) Cirrhosis Current Visit: Yes Status: Acute (9) Steatohepatitis, nonalcoholic Current Visit: Yes Status: Acute Code(s): K75.81 - NONALCOHOLIC STEATOHEPATITIS ([place])
[2019-10-24] MEDS: ZOCOR 20MG PO SCH (22:06)
[2019-10-24] MEDS: ROCEPHIN 1 Gm-D5w 50 ml Bag** 1 G/50 ML IVPB IV SCH (22:06)
[2019-10-25] MEDS: DUONEB 0.5-3 MG/3 ml Neb IH SCH ×3 (00:51→13:43)
[2019-10-25] MEDS: solu-MEDROL 40 MG IV SCH (06:34)
--- NOTE | 2019-10-25 09:01 | PCM.DCORD ---
- Discharge Discharge Date: 10/25/19 Disposition: Home, Self-Care Condition: Fair Prescriptions: New Albuterol Sulfate [Albuterol Sulfate Hfa] 2 puffs IH Q4H PRN #1 hfa.aer.ad PRN Reason: Shortness Of Breath/Wheezing Carvedilol 12.5 mg [Coreg 12.5 mg] 12.5 mg PO BID #60 tablet Prednisone 20 mg [Deltasone 20 mg] 20 mg PO DAILY #3 tablet Insulin Glargine,Hum.rec.anlog [Lantus Solostar] 10 unit SQ DAILY #1 pen Cefdinir [Omnicef] 300 mg PO BID #10 capsule Pen Needle, Diabetic [Pen [place]] 1 each MC DAILY #50 dis.needle Continue Clopidogrel Bisulfate [Clopidogrel] 75 mg PO DAILY Aspirin [Aspirin EC] 81 mg pe PO DAILY Docusate Sodium 100 mg PO BID Furosemide 20 mg [Lasix 20 mg] 20 mg PO UD Levothyroxine Sodium 88 mcg PO DAILY Glipizide [Glipizide ER] 5 mg PO DAILY Metformin HCl 1,000 mg PO HS Simvastatin 20 mg pe PO DAILY PANTOPRAZOLE 40 mg Tablet [Protonix 40MG Tablet] 40 mg PO DAILY Discontinued carvediloL [Carvedilol] 6.25 mg PO BID Additional Instructions: Use oxygen 3 L by nasal cannula at all time for pneumonia. Follow up with: ALIVIA SORIANO [ACTIVE STAFF] - 1 Week (FOLLOW UP WITH DR SORIANO 1 WK AFTER DISCHARGE) LUIS CARLOS GRIMES [Primary Care Provider] - 1 Week
[2019-10-25] MEDS: Glucophage 500 MG PO SCH (09:02)
[2019-10-25] MEDS: Glucotrol Xl 2.5 MG PO SCH (09:02)
[2019-10-25] MEDS: Protonix 40MG Tablet PO SCH (09:12)
[2019-10-25] MEDS: ECOTRIN 81 MG PO SCH (09:12)
[2019-10-25] MEDS: COREG 12.5 MG PO SCH (09:12)
[2019-10-25] MEDS: SYNTHROID 88 MCG PO SCH (09:12)
[2019-10-25] MEDS: PLAVIX 75 MG Tablet PO SCH (09:12)
[2019-10-25] MEDS: Lasix 20 MG/2 ML IV SCH (09:12)
--- NOTE | 2019-10-25 11:42 | DS ---
DISCHARGE DIAGNOSES: 1) INFLUENZA A. 2) PNEUMONIA RIGHT LOWER LOBE. 3) HYPOXIA DUE TO PNEUMONIA AND INFLUENZA. 4) REACTIVE AIRWAY DISEASE. 5) DIABETES MELLITUS TYPE 2, CONTROLLED. 6) HYPERTENSION. 7) ANEMIA. 8) CIRRHOSIS. 9) NONALCOHOLIC STEATOHEPATITIS. DISCHARGE PHYSICAL EXAMINATION: VITALS: Temperature current 98.3F, temperature max 98.3F, heart rate 57, respiratory rate 16, blood pressure 132/66. Oxygen saturation 94% on 2 liters nasal cannula. GENERAL: The patient is a pleasant talkative lady sitting up in her chair in no acute distress. CVS: She has a regular rate and rhythm. No murmurs, gallops or rubs. CHEST: She has distant breath sounds bilaterally but improved air exchange. No crackles or wheezes are noted. ABDOMEN: Obese, soft, nontender. EXTREMITIES: Trace edema to mid shins bilaterally. No clubbing or cyanosis. HOSPITAL COURSE: 1) INFLUENZA: She tested positive for influenza A at [facility] before direct admission. She was given five days of Tamiflu 75 mg p.o. b.i.d. and had already had a flu immunization within the past two weeks. 2) RIGHT LOWER LOBE PNEUMONIA: This was seen on chest x-ray on 10/19/2019 and again on 10/22/2019. Transmission And Coordination Engineer, Dr. Vitor Ferraro, was consulted and saw the patient while she was here and plans to follow up as an outpatient with her stating that she will need pulmonary function test and perhaps a sleep study. The patient was given five days of azithromycin during her hospitalization and five days of ceftriaxone. She is being discharged on five days of Cefdinir to take 300 mg p.o. b.i.d. We tried to wean her off of oxygen multiple times. She is currently requiring 2 liters of oxygen by nasal cannula when she is ambulating and at rest and will need portable oxygen at discharge and the order was signed for this. 3) HYPOXIA DUE TO PNEUMONIA AND INFLUENZA: Oxygen as stated above under pneumonia. 4) REACTIVE AIRWAY DISEASE: She was given IV steroids during her hospitalization that were tapered. I am sending her home on oral prednisone. Again, she will follow up with Dr. Vitor Ferraro, Transmission And Coordination Engineer. Will continue with Albuterol 2 puffs every four hours as needed for shortness of breath at home. 5) DIABETES MELLITUS TYPE 2: She was continued on her home diabetes medicine. Her blood sugars continued to run slightly high. I am going to start her on a long acting insulin 10 units daily. I had written a prescription for Lantus but I have already received a notice from her pharmacy that they will not cover that so as an outpatient a new prescription for Basaglar was sent. 6) HYPERTENSION: Her carvedilol was increased during the hospitalization due to high blood pressure. Her blood pressure is currently well controlled. 7) ANEMIA: She has had a history of esophageal varices due to her cirrhosis and follows up with a darkroom worker as an outpatient. Her hemoglobin was stable. 8) CIRRHOSIS: Again, she follows up with a darkroom worker. 9) NONALCOHOLIC STEATOHEPATITIS: Again, she follows up a darkroom worker. DISCHARGE MEDICATIONS: Please see the discharge order. She will also need the oxygen as described above. DISPOSITION: The patient was discharged to home in fair condition to follow up with me in a week and Dr. Vitor Ferraro as well.
[2019-10-25] MEDS: NovoLOG Insulin SQ PRN (13:15)
[2019-10-25 13:28] VITALS: BP 160/68
[2019-10-25 13:49] VITALS: PULSE 87; O2SAT 94
== END 2019-10-25 16:15 | disposition home or self-care (01) | DRG 193 ==
LOC: MED SURG 17:04 → INTOOBSV 17:04 → MED SURG 17:40 → OBSVTOIN 17:40
PROVIDERS: ADMIT Internal Medicine; ATTEND Internal Medicine
DX: J09.X2 Influenza due to identified novel influenza A virus with other respiratory manifestations (principal); J96.92 Respiratory failure, unspecified with hypercapnia; J18.9 Pneumonia, unspecified organism; E11.9 Type 2 diabetes mellitus without complications; I10 Essential (primary) hypertension; E78.5 Hyperlipidemia, unspecified; E03.9 Hypothyroidism, unspecified; K75.81 Nonalcoholic steatohepatitis (NASH); Z86.73 Personal history of transient ischemic attack (TIA), and cerebral infarction without residual deficits; J45.909 Unspecified asthma, uncomplicated; D64.9 Anemia, unspecified; K74.60 Unspecified cirrhosis of liver
CPT/HCPCS: 36415; 36600; 71046; 80048; 80053; 82375; 82607; 82803; 82962; 83036; 83540; 83550; 83880; 85025; 94150; 94640; 94760; J0456; J0696; J1940; J2920; J2930; A9270-GY

== ENCOUNTER 2019-11-15 08:32 | Emergency (ER) | payer OTHER ==
--- NOTE | 2019-11-15 08:44 | ERPHSYRPT ---
- History of Present Illness Time Seen by Provider: 11/15/19 08:44 Source: patient, EMS Exam Limitations: no limitations Patient Subjective Stated Complaint: pt here for sob and swelling to lower legs , cough productive yellow, pt was recently admitted to hospital for flu and pneumonia. Triage Nursing Assessment: pt alert, resp easy at rest, skin w.d.p, no fever, pt has swelling to lower legs and feet,she states is getting worse Physician History: 69 y/o morbidly obese diabetic white female with h/o copd and htn, presents with worsening soa, ankle swelling and productive cough of yellowish phlegm. pt was recently discharged to home from hospital for tx of flu and pneumonia. pt was also recently placed on 3 L oxygen [place]. pt is on plavix, asa and lasix. Timing/Duration: today Activities at Onset: none Severity of Dyspnea-Max: moderate Severity of Dyspnea-Current: moderate Possible Cause: frequent episodes Modifying Factors: Improves With: lying down (worsens), oxygen (improves) Associated Symptoms: edema (bilat feet and ankles), ankle swelling, productive cough Allergies/Adverse Reactions: codeine Allergy (Mild, Verified 10/19/19 17:58) Home Medications: Aspirin [Aspirin EC] 81 mg pe PO DAILY 10/19/19 [History] Clopidogrel Bisulfate [Clopidogrel] 75 mg PO DAILY 10/19/19 [History] Docusate Sodium 100 mg PO BID 10/19/19 [History] Furosemide 20 mg [Lasix 20 mg] 20 mg PO DAILY 10/19/19 [History] Glipizide [Glipizide ER] 10 mg PO DAILY 10/19/19 [History] Levothyroxine Sodium 88 mcg PO DAILY 10/19/19 [History] Metformin HCl 1,000 mg PO HS 10/19/19 [History] PANTOPRAZOLE 40 mg Tablet [Protonix 40MG Tablet] 40 mg PO DAILY 10/19/19 [ History] Simvastatin 20 mg pe PO DAILY 10/19/19 [History] Albuterol 2.5 mg/3 ml Neb [Proventil 2.5 mg/3 ml Neb] 1 inh PO Q6H [History] Hx Tetanus, Diphtheria Vaccination/Date Given: Yes Hx Influenza Vaccination/Date Given: Yes Hx Pneumococcal Vaccination/Date Given: Yes Immunizations Up to Date: Yes - Review of Systems Constitutional: No Symptoms Eyes: No Symptoms Ears, Nose, & Throat: No Symptoms Respiratory: No Symptoms Cardiac: No Symptoms Abdominal/Gastrointestinal: No Symptoms Genitourinary Symptoms: No Symptoms Musculoskeletal: No Symptoms Skin: No Symptoms Neurological: No Symptoms Psychological: No Symptoms Endocrine: No Symptoms Hematologic/Lymphatic: No Symptoms Immunological/Allergic: No Symptoms All Other Systems: Reviewed and Negative - Past Medical History Pertinent Past Medical History: Yes Neurological History: Stroke ENT History: No Pertinent History Cardiac History: High Cholesterol, Hypertension Respiratory History: Pneumonia Endocrine Medical History: Diabetes Type II, Hypoglycemia Musculoskeletal History: Arthritis GI Medical History: Ulcer History: No Pertinent History Psycho-Social History: No Pertinent History Female Reproductive Disorders: No Pertinent History Other Medical History: BLEEDING ULCER X 20 YRS AGO - Past Surgical History Past Surgical History: Yes Neuro Surgical History: No Pertinent History Cardiac: No Pertinent History Respiratory: No Pertinent History Gastrointestinal: Appendectomy, Other Genitourinary: No Pertinent History Musculoskeletal: No Pertinent History Female Surgical History: No Pertinent History Other Surgical History: HAD GOITER REMOVED FROM THYROID, TONSILECTOMY ALSO, VARASE BLEEDS BANDED - Social History Smoking Status: Former smoker How long have you smoked: 30 Exposure to second hand smoke: No Drug Use: none Patient Lives Alone: No - Female History Hx Last Menstrual Period: post Hx Now: No - Nursing Vital Signs Nursing Vital Signs: Initial Vital Signs Temperature 97.0 F 11/15/19 08:33 Pulse Rate 89 11/15/19 08:33 Respiratory Rate 22 11/15/19 08:33 Blood Pressure 126/65 11/15/19 08:33 O2 Sat by Pulse Oximetry 92 L 11/15/19 08:33 Pain Scale Pain Intensity 2 - Physical Exam General Appearance: mild distress, alert, anxiety, obese Eye Exam: PERRL/EOMI, eyes nml inspection Ears, Nose, Throat Exam: hearing grossly normal, normal ENT inspection Neck Exam: normal inspection, non-tender, supple, full range of motion Respiratory Exam: normal breath sounds, lungs clear, respiratory distress (mild) , No chest tenderness, No airway intact Cardiovascular/Chest Exam: normal heart sounds, regular rate/rhythm Abdominal/Gastrointestinal Exam: soft, normal bowel sounds, No tenderness Rectal Exam: not done Extremity Exam: swelling (bilat feet and ankles) Neurologic Exam: alert, oriented x 3, cooperative, lathmaker II-XII nml as tested Skin Exam: normal color, warm, dry Lymphatic Exam: No adenopathy SpO2 Interpretation: borderline oxygenation SpO2: 93 O2 Delivery: Nasal Cannula - Course Nursing assessment & vital signs reviewed: Yes EKG Interpreted by Me: RATE (83), A-fib, NORMAL AXIS, Non-specific ST Changes, Other (no comparison ekg.) Ordered Tests: Active Orders 24 hr Category Date Time Status ACCUCHECK [Accucheck] STAT Care 11/15/19 15:07 Active Anodic Operator STAT Care 11/15/19 09:02 Active EKG-ER Only STAT Care 11/15/19 09:00 Active IV Insertion STAT Care 11/15/19 09:00 Active Pulse Oximetry (ED) STAT Care 11/15/19 09:00 Active 2000 Calorie ADA Diet 11/15/19 Dinner Active CHEST 1 VIEW (PORTABLE) Stat Exams 11/15/19 09:02 Completed BLOOD CULTURE Stat Lab 11/15/19 09:21 Received CBC W DIFF Stat Lab 11/15/19 09:00 Completed CMP Stat Lab 11/15/19 09:00 Completed CULTURE,SPUTUM Stat Lab 11/15/19 09:01 Uncollected D-DIMER QUANTITATIVE Stat Lab 11/15/19 09:00 Completed Lactic Acid Stat Lab 11/15/19 09:43 Completed NT PRO BNP Stat Lab 11/15/19 09:00 Completed PROTIME WITH INR Stat Lab 11/15/19 09:00 Completed TROPONIN Q3H Lab 11/15/19 09:00 Completed TROPONIN Q3H Lab 11/15/19 12:20 Completed Peak Expiratory Flow Rate ONCE RT 11/15/19 09:33 Active Respiratory Therapy Assessment DAILY RT 11/15/19 09:32 Active Medication Summary Discontinued Medications Generic Name Dose Route Start Last Admin Trade Name Freq PRN Reason Stop Dose Admin Albuterol Sulfate 2.5 mg 11/15/19 09:00 11/15/19 09:28 Proventil 2.5 Mg/3 Ml Neb IH 11/15/19 09:01 2.5 mg STAT ONE Administration Albuterol Sulfate Confirm 11/15/19 09:26 Proventil 2.5 Mg/3 Ml Neb Administered 11/15/19 09:27 Dose 2.5 mg IH .STK-MED ONE Furosemide 40 mg 11/15/19 10:58 11/15/19 11:14 Lasix 40 Mg/4 Ml IV 11/15/19 10:59 40 mg STAT ONE Administration Furosemide Confirm 11/15/19 11:13 Lasix 40 Mg/4 Ml Administered 11/15/19 11:14 Dose 40 mg .ROUTE .STK-MED ONE Lab/Rad Data: Laboratory Result Diagrams 11/15/19 09:00 11/15/19 09:00 Laboratory Results 11/15/19 11/15/19 11/15/19 Range/Units 12:20 09:43 09:00 WBC (4.0-10.5) K/mm3 RBC (4.1-5.4) M/mm3 Hgb (12.0-16.0) gm/dl Hct (35-47) % MCV (78-100) fl MCH (26-32) pg MCHC (32-36) g/dl RDW (11.5-14.0) % Plt Count (150-450) K/mm3 MPV (7.5-11.0) fl Gran % (36.0-66.0) % Eos # (Auto) (0-0.5) Absolute Lymphs (auto) (1.0-4.6) Absolute Monos (auto) (0.0-1.3) Lymphocytes % (24.0-44.0) % Monocytes % (0.0-12.0) % Eosinophils % (0.00-5.0) % Basophils % (0.0-0.4) % Absolute Granulocytes (1.4-6.9) Basophils # (0-0.4) PT (9.95-12.35) SECONDS INR (0.8-3.0) D-Dimer (215-500) ng/mL Sodium (137-145) mmol/L Potassium (3.5-5.1) mmol/L Chloride (98-107) mmol/L Carbon Dioxide (22-30) mmol/L Anion Gap (5-15) MEQ/L BUN (7-17) mg/dL Creatinine (0.52-1.04) mg/dL Estimated GFR ML/MIN Glucose (74-106) mg/dL Lactic Acid 1.7 (0.4-2.0) Calcium (8.4-10.2) mg/dL Total Bilirubin (0.2-1.3) mg/dL AST (14-36) U/L ALT (0-35) U/L Alkaline Phosphatase (38-126) U/L Troponin I < 0.012 < 0.012 (0.000-0.034) ng/mL NT-Pro-B Natriuret Pep (0-900) pg/mL Serum Total Protein (6.3-8.2) g/dL Albumin (3.5-5.0) g/dL Slides for Path Review 11/15/19 11/15/19 11/15/19 Range/Units 09:00 09:00 09:00 WBC 6.7 (4.0-10.5) K/mm3 RBC 2.97 L (4.1-5.4) M/mm3 Hgb 6.9 L* (12.0-16.0) gm/dl Hct 26.2 L (35-47) % MCV 88.2 (78-100) fl MCH 23.2 L (26-32) pg MCHC 26.3 L (32-36) g/dl RDW 19.8 H (11.5-14.0) % Plt Count 211 (150-450) K/mm3 MPV 10.0 (7.5-11.0) fl Gran % 64.3 (36.0-66.0) % Eos # (Auto) 0.15 (0-0.5) Absolute Lymphs (auto) 1.41 (1.0-4.6) Absolute Monos (auto) 0.79 (0.0-1.3) Lymphocytes % 21.1 L (24.0-44.0) % Monocytes % 11.8 (0.0-12.0) % Eosinophils % 2.2 (0.00-5.0) % Basophils % 0.6 (0.0-0.4) % Absolute Granulocytes 4.28 (1.4-6.9) Basophils # 0.04 (0-0.4) PT 13.4 H (9.95-12.35) SECONDS INR 1.18 (0.8-3.0) D-Dimer 46484 H* (215-500) ng/mL Sodium 142 (137-145) mmol/L Potassium 4.3 (3.5-5.1) mmol/L Chloride 100 (98-107) mmol/L Carbon Dioxide 36 H (22-30) mmol/L Anion Gap 9.8 (5-15) MEQ/L BUN 14 (7-17) mg/dL Creatinine 0.63 (0.52-1.04) mg/dL Estimated GFR > 60.0 ML/MIN Glucose 138 H (74-106) mg/dL Lactic Acid (0.4-2.0) Calcium 8.8 (8.4-10.2) mg/dL Total Bilirubin 0.70 (0.2-1.3) mg/dL AST 20 (14-36) U/L ALT 11 (0-35) U/L Alkaline Phosphatase 124 (38-126) U/L Troponin I (0.000-0.034) ng/mL NT-Pro-B Natriuret Pep 4740 H (0-900) pg/mL Serum Total Protein 7.2 (6.3-8.2) g/dL Albumin 3.4 L (3.5-5.0) g/dL Slides for Path Review YES - Progress Progress: improved, re-examined Air Movement: fair Progress Note: 11/15/19 11:29 1120 spoke with [facility] hospitalist [facility]. mayorga. i reviewed pt hx, labs, and xray results. pt unable to fit in our ct scanner. pt with h/o esophageal varices and cirrhosis. pt is anemic. pts d dimer elevated. we agreed to hold lovenox for now because of above issues. he accepts pt in transfer. awaiting call back for bed. 11/15/19 17:42 [facility] gave rn bed assignment. pt to be transferred to [facility] ambulance approx 1830 Blood Culture(s) Obtained: No Antibiotics given: No Counseled pt/family regarding: lab results, diagnosis, need for follow-up, rad results - Departure Departure Disposition: Transfer Clinical Impression: Hypoxia, Anemia, Pneumonia, CHF (congestive heart failure), Elevated d-dimer, Morbid obesity Condition: Fair Critical Care Time: Yes Critical Care Time(excluding separately billable procedures): Critical 30-74 mins Referrals: LUIS CARLOS GRIMES [Primary Care Provider] - Instructions: Heart Failure
[2019-11-15] MEDS ORDERED: PROVENTIL 2.5 MG/3 ML NEB IH ONE ×2 (09:00→09:26)
[2019-11-15 09:20] LABS: Absolute Neutrophil Ct (ANC) 4.28 (1.4-6.9); BASOPHIL % 0.6 % (0.0-0.4); Basophil (Absolute #) 0.04 (0-0.4); Eosinophil % 2.2 % (0.00-5.0); Eosinophil (Absolute #) 0.15 (0-0.5); Hematocrit 26.2 % (35-47); Lymphocyte (Absolute #) 1.41 (1.0-4.6); Lymphocytes % 21.1 % (24.0-44.0); Mean Cell Volume 88.2 fl (78-100); Mean Corpuscular Hemoglobin 23.2 pg (26-32); Mean Corpuscular Hgb Concent. 26.3 g/dl (32-36); Monocyte (Absolute #) 0.79 (0.0-1.3); Monocytes % 11.8 % (0.0-12.0); Neutrophil % 64.3 % (36.0-66.0); Platelet Count 211 K/mm3 (150-450); Red Blood Count 2.97 M/mm3 (4.1-5.4); Red Cell Distribution Width 19.8 % (11.5-14.0); White Blood Count 6.7 K/mm3 (4.0-10.5)
[2019-11-15 09:21] LABS: INR 1.18 (0.8-3.0); PROTIME 13.4 SECONDS (9.95-12.35)
[2019-11-15 09:28] LABS: ALBUMIN 3.4 g/dL (3.5-5.0); ALKALINE PHOSPHATASE 124 U/L (38-126); ANION GAP 9.8 MEQ/L (5-15); BLOOD UREA NITROGEN 14 mg/dL (7-17); CHLORIDE 100 mmol/L (98-107); Calcium 8.8 mg/dL (8.4-10.2); Carbon Dioxide 36 mmol/L (22-30); Creatinine 1 0.63 mg/dL (0.52-1.04); Glucose 138 mg/dL (74-106); Potassium 4.3 mmol/L (3.5-5.1); SGOT/AST 20 U/L (14-36); SGPT/ALT 11 U/L (0-35); SODIUM 142 mmol/L (137-145); Total Protein 7.2 g/dL (6.3-8.2)
[2019-11-15 09:38] LABS: NT PRO BNP 4740 pg/mL (0-900)
[2019-11-15 09:44] LABS: Hemoglobin 6.9 gm/dl (12.0-16.0)
[2019-11-15 09:47] LABS: Slide Review 1 YES
--- NOTE | 2019-11-15 09:55 | XRAY ---
Indication: Short of breath. Comparison: November 03, 2019. Portable chest demonstrates new cardiomegaly, central vascular prominence, and small bibasilar effusions worrisome for cardiac decompensation. Also new right midlung patchy airspace opacity.
[2019-11-15] MEDS ORDERED: Lasix 40 MG/4 ML IV ONE (10:58)
[2019-11-15] MEDS ORDERED: Lasix 40 MG/4 ML ONE (11:13)
[2019-11-15 16:04] VITALS: BP 121/69
[2019-11-15 19:05] VITALS: PULSE 70; O2SAT 94
== END 2019-11-15 19:12 | disposition short-term general hospital (02) ==
LOC: ED 08:32
DX: R09.02 Hypoxemia (principal); D64.9 Anemia, unspecified; J18.9 Pneumonia, unspecified organism; I50.9 Heart failure, unspecified; R79.1 Abnormal coagulation profile; E66.01 Morbid (severe) obesity due to excess calories; I10 Essential (primary) hypertension; E11.9 Type 2 diabetes mellitus without complications; Z79.899 Other long term (current) drug therapy; E78.00 Pure hypercholesterolemia, unspecified
CPT/HCPCS: 36000; 36415; 71045; 80053; 82962; 83605; 83880; 84484; 85025; 85379; 85610; 87040; 93005; 93041; 94150; 94640; 94760; 96374; 99285; 99291; J1940; J7609; A9270-GY